=== PATIENT | female | born 1955 | race Caucasian/White ===

== ENCOUNTER 2016-07-31 09:04 | Inpatient (IN) | payer MEDICARE ==
[~2016-07-31] VITALS: Ht 165.1 cm; Wt 120.0 kg
[2016-08-15] MEDS ORDERED: CLON1TAB PO (10:36)
[2016-08-15] MEDS ORDERED: ESCI20TA PO (10:36)
[2016-08-15] MEDS ORDERED: LISI20TA PO (10:36)
[2016-08-15] MEDS ORDERED: OMEP20TA PO (10:36)
[2016-08-15] MEDS ORDERED: RISP2TAB2 PO (10:36)
[2016-08-15] MEDS ORDERED: LAMO200T PO (10:36)
[2016-08-15] MEDS ORDERED: TOPI1TAB31 PO (10:36)
[2016-08-15] MEDS ORDERED: CHOL4POW3 PO (10:36)
[2016-08-15] MEDS ORDERED: CLON2TAB PO (10:47)
[2016-08-16 05:30] VITALS: BP 121/81; PULSE 81; RESP 18; TEMP 98; O2SAT 95
[2016-08-16] MEDS ORDERED: metroNIDAZOLE 500 MG INJ 100 ML IV SCH (06:00)
[2016-08-16] MEDS ORDERED: VANCOMYCIN 1,250 MG/NS 250 ML (for 70-84 kg) IV SCH ×2 (06:00)
[2016-08-16] MEDS ORDERED: SCOPOLAMINE 1.5 MG PATCH T-DERMAL SCH (06:00)
[2016-08-16] MEDS ORDERED: ONDANSETRON HCL 4 MG/2 ML VIAL IV PUSH SCH (06:00)
[2016-08-16] MEDS ORDERED: SODIUM CHLORID 0.9% 500 ML IV SCH (06:00)
[2016-08-16] MEDS ORDERED: ACETAMINOPHEN 1000 MG/100 ML VIAL IV SCH (06:00)
[2016-08-16] MEDS ORDERED: INSULIN HUMAN REGULAR 1,000 UNITS/10 ML VIAL SQ PRN (06:00)
[2016-08-16] MEDS ORDERED: METOPROLOL TARTRATE 25 MG TAB PO PRN (06:00)
[2016-08-16] MEDS ORDERED: ONDANSETRON HCL 4 MG/2 ML VIAL ONE (06:55)
[2016-08-16] MEDS ORDERED: fentaNYL CITRATE 250 MCG/5 ML AMP ONE ×2 (06:55→09:54)
[2016-08-16] MEDS: LACTATED RINGER'S 1000 ML IV SCH (07:15)
[2016-08-16] MEDS ORDERED: DEXAMETHASONE SOD PHOS 4 MG/ML VIAL ONE (09:29)
[2016-08-16] MEDS ORDERED: FAMOTIDINE 20 MG/2 ML VIAL ONE (09:29)
[2016-08-16] MEDS ORDERED: MIDAZOLAM HCL 2 MG/2 ML VIAL ONE (09:29)
[2016-08-16] MEDS ORDERED: DICLOFENAC SODIUM 37.5 MG/ML VIAL IV PUSH ONE (09:54)
[2016-08-16] MEDS ORDERED: METHYLENE BLUE 10 MG/ML VIAL OTHER ONE (10:47)
[2016-08-16] MEDS ORDERED: BUPIVACAINE/EPINEPHRINE 0.5% PF 30 ML VIAL INFIL ONE (10:47)
[2016-08-16] MEDS ORDERED: diphenhydrAMINE HCL ELIXIR 12.5 MG/5 ML CUP PO PRN (12:00)
[2016-08-16] MEDS ORDERED: NALOXONE HCL 0.4 MG/ML AMP IV PRN (12:00)
[2016-08-16] MEDS ORDERED: ACETAMINOPHEN 325MG/HYDROcodone 7.5MG/15ML UDC PO PRN ×2 (12:00)
[2016-08-16] MEDS ORDERED: ACETAMINOPHEN 1000 MG/100 ML VIAL IV PRN (12:00)
[2016-08-16] MEDS ORDERED: diphenhydrAMINE HCL 50 MG/ML VIAL IV PRN (12:00)
[2016-08-16] MEDS ORDERED: Post-op Orders (for Pharmacy) MISC XX ONE (12:00)
[2016-08-16] MEDS: RESP: ALBUTEROL 2.5 MG/3 ML NEB (SCH) INH ×2 (12:00→19:01)
[2016-08-16] MEDS ORDERED: ENALAPRILAT 1.25 MG/ML VIAL IV PUSH PRN (12:00)
[2016-08-16] MEDS ORDERED: SODIUM CHLORIDE 0.9% FLUSH 5 ML FLUSH IVF PRN (12:00)
[2016-08-16] MEDS ORDERED: MORPHINE SULFATE 30 MG/30 ML PCA IV SCH (12:00)
[2016-08-16] MEDS ORDERED: ONDANSETRON HCL 4 MG/2 ML VIAL IV PRN ×2 (12:00)
[2016-08-16] MEDS ORDERED: *RESP: ALBUTEROL 2.5 MG/3 ML NEB (PRN) PERIprocedural Use ONLY NEB ONE (12:18)
[2016-08-16] MEDS ORDERED: DO NOT ADM ANY ANTICOAGULANT DRUGS XX PRN (12:19)
[2016-08-16 12:30] VITALS: O2SAT 95
[2016-08-16] MEDS: D5-1/2 NS + KCL 20 MEQ INJ 1,000 ML IV SCH ×3 (12:57→19:42)
[2016-08-16] MEDS: METOCLOPRAMIDE HCL 10 MG/2 ML VIAL IVS SCH ×2 (12:57→18:04)
[2016-08-16] MEDS ORDERED: ePHEDrine/NS 50 MG/5 ML SYR IV ONE (14:51)
[2016-08-16] MEDS ORDERED: PROPOFOL 200 MG/20 ML AMP IV ONE (14:51)
[2016-08-16] MEDS ORDERED: NEOSTIGMINE 3 MG/3 ML SYR IV ONE (14:51)
[2016-08-16] MEDS ORDERED: LACTATED RINGER'S 1000 ML INJ 1,000 ML IV ONE (14:51)
[2016-08-16 16:00] VITALS: BP 113/63; PULSE 92; RESP 19; TEMP 98.7; O2SAT 96
[2016-08-16] MEDS ORDERED: ENOXAPARIN SODIUM 40 MG/0.4 ML SYRINGE SQ SCH (17:00)
[2016-08-16] MEDS: metroNIDAZOLE 500 MG INJ 100 ML IV SCH (18:03)
[2016-08-16 19:01] VITALS: O2SAT 90
[2016-08-16] MEDS: SODIUM CHLORIDE 0.9% FLUSH 5 ML FLUSH IVF SCH (19:41)
[2016-08-16] MEDS: VANCOMYCIN INJ 1,000 MG in SODIUM CHLOR 0.9% 250 ML INJ 250 ML IV SCH (19:41)
[2016-08-16 20:00] VITALS: BP 120/54; PULSE 84; RESP 18; TEMP 98.6; O2SAT 96
[2016-08-16] MEDS: PCA - TOTAL MG MORPHINE DELIVERED PER SHIFT SCH (22:00)
[2016-08-17] MEDS: METOCLOPRAMIDE HCL 10 MG/2 ML VIAL IVS SCH ×2 (00:26→05:54)
[2016-08-17] MEDS: metroNIDAZOLE 500 MG INJ 100 ML IV SCH ×2 (00:26→08:02)
[2016-08-17] MEDS: RESP: ALBUTEROL 2.5 MG/3 ML NEB (SCH) INH ×5 (00:53→15:08)
[2016-08-17] MEDS: D5-1/2 NS + KCL 20 MEQ INJ 1,000 ML IV SCH ×3 (02:20→12:19)
[2016-08-17 04:00] VITALS: BP 127/60; PULSE 82; RESP 18; TEMP 98.6; O2SAT 97
[2016-08-17 05:25] LABS: AUTOMATED NEUTROPHIL # 9.5 TH/MM3 (1.8-7.7); BASOPHIL % 0.3 % (0.0-2.0); EOSINOPHIL % 0.2 % (0.0-4.0); HEMATOCRIT 35.6 % (35.0-46.0); HEMO FLAGS DIFF FINAL; LYMPH % 24.1 % (9.0-44.0); LYMPHOCYTE # 3.3 TH/MM3 (1.0-4.8); MEAN CELL VOLUME 79.3 FL (80.0-100.0); MEAN CORPUSCULAR HEMOGLOBIN 25.3 PG (27.0-34.0); MEAN CORPUSCULAR HGB CONC 31.9 % (32.0-36.0); MONO % 6.3 % (0.0-8.0); NEUT % 69.1 % (16.0-70.0); PLATELET COUNT 205 TH/MM3 (150-450); RED BLOOD COUNT 4.49 MIL/MM3 (4.00-5.30); RED CELL DISTRIBUTION WIDTH 15.8 % (11.6-17.2); WHITE BLOOD COUNT 13.8 TH/MM3 (4.0-11.0)
[2016-08-17 05:52] LABS: BICARBONATE 26.3 MEQ/L (21.0-32.0); MAGNESIUM 1.9 MG/DL (1.5-2.5); POTASSIUM 3.4 MEQ/L (3.5-5.1)
[2016-08-17] MEDS: SUCRALFATE 1 GM/10 ML CUP PO SCH ×2 (05:53→12:19)
[2016-08-17] MEDS: LACTATED RINGER'S 1000 ML IV SCH (05:54)
[2016-08-17] MEDS: PCA - TOTAL MG MORPHINE DELIVERED PER SHIFT SCH (06:00)
[2016-08-17 07:17] VITALS: O2SAT 93
[2016-08-17 08:00] VITALS: BP 119/74; PULSE 83; RESP 19; TEMP 95.8; O2SAT 95
[2016-08-17] MEDS: SODIUM CHLORIDE 0.9% FLUSH 5 ML FLUSH IVF SCH (08:08)
[2016-08-17] MEDS: VANCOMYCIN INJ 1,000 MG in SODIUM CHLOR 0.9% 250 ML INJ 250 ML IV SCH (08:13)
[2016-08-17] MEDS ORDERED: PNEUMOCOCCAL POLYVALENT INJ 25 MCG/0.5 ML SYR IM ONE (09:00)
[2016-08-17] MEDS ORDERED: PANTOPRAZOLE SODIUM 40 MG VIAL IVP SCH (09:00)
[2016-08-17] MEDS ORDERED: PANTOPRAZOLE SOD 40 MG DELAYED RELEASE TAB PO SCH (09:00)
--- NOTE | 2016-08-17 09:56 | HHI.PR ---
Subjective Subjective Notes pt comfortable no cp no sob Objective Vitals/I&O Vital Signs Date Time Temp Pulse Resp B/P Pulse Ox O2 Delivery O2 Flow Rate FiO2 08/17/16 07:17 93 21 08/17/16 06:00 18 08/17/16 04:00 98.6 82 127/60 08/16/16 15:00 Nasal Cannula 4 Labs Laboratory Tests Test 08/17/16 04:30 White Blood Count 13.8 Red Blood Count 4.49 Hemoglobin 11.3 Hematocrit 35.6 Mean Corpuscular Volume 79.3 Mean Corpuscular Hemoglobin 25.3 Mean Corpuscular Hemoglobin 31.9 Concent Red Cell Distribution Width 15.8 Platelet Count 205 Mean Platelet Volume 9.5 Neutrophils (%) (Auto) 69.1 Lymphocytes (%) (Auto) 24.1 Monocytes (%) (Auto) 6.3 Eosinophils (%) (Auto) 0.2 Basophils (%) (Auto) 0.3 Neutrophils # (Auto) 9.5 Lymphocytes # (Auto) 3.3 Monocytes # (Auto) 0.9 Eosinophils # (Auto) 0.0 Basophils # (Auto) 0.0 CBC Comment DIFF FINAL Differential Comment Sodium Level 140 Potassium Level 3.4 Chloride Level 104 Carbon Dioxide Level 26.3 Anion Gap 10 Blood Urea Nitrogen 12 Creatinine 1.06 Estimat Glomerular Filtration 53 Rate Random Glucose 116 Calcium Level 8.1 Magnesium Level 1.9 Abdomen: Post-op tenderness Extremities: Perfused Wound Wound : Wound Location: Abdomen Appearance: Clean & Dry A/P Assessment and Plan POD #1 s/p LRYGBP normal post op changes possible d/c home later today Kofi Desai MD Aug 17, 2016 09:56
[2016-08-17 12:00] VITALS: BP 123/70; PULSE 86; RESP 17; TEMP 97.9; O2SAT 92
[2016-08-17] MEDS ORDERED: METOCLOPRAMIDE HCL 10 MG/2 ML VIAL IVS PRN (13:00)
--- NOTE | 2016-08-25 12:41 | MP ---
cc: KAYLEEN DESAI DATE OF SURGERY: 08/16/2016 PREOPERATIVE DIAGNOSIS: Morbid obesity with a BMI of 49 complicated by essential hypertension. POSTOPERATIVE DIAGNOSIS: Morbid obesity with a BMI of 49 complicated by essential hypertension. OPERATIVE PROCEDURE PERFORMED: Laparoscopic Maria D-en-Y gastric bypass 100 cm Maria D limb antegastric antecolic. SURGEON: Kayleen Desai MD. ANESTHESIA: General endotracheal anesthesia ESTIMATED BLOOD LOSS: Scant. SPECIMENS: None. COMPLICATIONS: None. DESCRIPTION OF THE PROCEDURE IN DETAIL: The patient was brought to the operating room and placed on the operating table in supine position, bilateral sequential inflation device placed on lower extremities, general anesthesia instituted, antibiotics initiated. The abdomen was prepped and draped sterilely. A poin 18-cm distal to the xiphoid in the midline anesthetized with 0.25% Marcaine with epinephrine. The skin incision was made, a 5-mm OptiView port placed under direct vision and pneumoperitoneum was created. Under direct vision a 5-mm left upper quadrant, 12-mm left upper quadrant, 12-mm right upper quadrant and 5-mm right upper quadrant ports were placed. Prior to placement of all ports, the skin and peritoneum were anesthetized with 0.25% Marcaine with epinephrine. The patient's omentum was lifted into the upper abdomen. It was split down the middle to create a path for the Maria D limb. The ligament of Treitz was identified, a point 40 cm distal identified. The small bowel was divided in this region using an Bouton Flex stapler vascular load reinforced with SeamGuard. The distal segment was brought up for a distance of 100 cm, enterotomy created in this region, enterotomy in the biliopancreatic limb and a [id number] stapled jejunojejunostomy created in the usual manner. The mesenteric defect at the jejunojejunostomy was closed with 2-0 Surgidac suture in a running manner. The patient was placed in reverse Trendelenburg position with the left side up. The Stephy-Flex retractor was placed. The left lobe of the liver was retracted. The angle of His was taken down bluntly, a point 5 cm distal to the GE junction along the lesser curve identified, the lesser sac entered using blunt dissection. The stomach was partitioned horizontally using an Bouton-Flex stapler blue load, an additional firing taken directed towards the angle of His to completely divide the stomach. A gastrotomy created in the new stomach, enterotomy in the Maria D limb and gastrojejunostomy created, stomal opening of 2 cm. An 18-Arabic OG tube was placed across the anastomosis, the defect then closed in two layers of running 2-0 Vicryl. Prior to placement of the second layer, methylene blue instilled through the OG tube. There was no evidence of extravasation. Evicel was then placed over the gastrojejunostomy, jejunojejunostomy and all staple lines. The operative field inspected and hemostasis was present. The CO2 was released, all ports were removed. All skin incisions were closed with 4-0 Monocryl. The abdominal wall was cleaned and a sterile dressing placed. The patient was awakened and taken to the recovery room. MD KISHORE Mcnair/ANIA /7:57 AM /12:39 PM
== END 2016-08-17 17:14 | disposition home or self-care (01) | DRG 621 ==
LOC: HSDI 08-16 05:22 → N07A 08-16 15:18
PROVIDERS: ADMIT Surgery; ATTEND Surgery
PROC: 0D164ZA Bypass Stomach to Jejunum, Percutaneous Endoscopic Approach (ICD-10-PCS; 2016-08-16)
PROC: 0DB64Z3 Excision of Stomach, Percutaneous Endoscopic Approach, Vertical (ICD-10-PCS; principal; 2016-08-16 10:04)
DX: E66.01 Morbid (severe) obesity due to excess calories (principal); Z68.41 Body mass index [BMI] 40.0-44.9, adult
CPT/HCPCS: 80048; 83735; 85025; 90471; 90732; 94002; 94150; 94640; 94664; G0009; J0131; J1100; J1130; J1650; J2250; J2270; J2405; J2710; J2765; J3010; J3370; J3480; J7050; J7120; J7613